=== PATIENT | male | born 1975 | race Asian ===

== ENCOUNTER 2017-06-19 22:08 | Inpatient (IN) | payer OTHER ==
[~2017-06-19] VITALS: Ht 167.6 cm; Wt 78.9 kg
[2017-06-20] MEDS ORDERED: CLOPIDOGREL 75MG TABLET PO SCH (03:00)
[2017-06-20] MEDS ORDERED: ENOXAPARIN 80MG/0.8ML SYR SUBCUT SCH ×2 (03:00→18:00)
[2017-06-20] MEDS ORDERED: ASPIRIN 325MG EC TABLET PO SCH (03:00)
[2017-06-20 03:25] LABS: BASOPHILS % 0.7 % (0.0-2.0); EOSINOPHILS % 2.1 % (0.0-5.0); HEMATOCRIT. 41.8 % (42.0-52.0); HEMOGLOBIN. 13.8 g/dL (14.0-18.0); MEAN CORPUSCULAR HEMOGLOBIN 27.9 pg (28.0-32.0); MEAN CORPUSCULAR VOLUME 84.4 fL (80.0-94.0); MEAN PLATELET VOLUME 8.4 fl (7.4-10.4); MONOCYTES % 8.1 % (2.0-8.0); NEUTROPHILS % 64.1 % (40.0-76.0); PLATELET 374 x1000/uL (130-400); RED BLOOD CELL COUNT 4.95 mill/uL (4.7-6.1); RED CELL DISTRIBUTION WIDTH 13.9 % (11.6-14.6)
[2017-06-20 03:30] LABS: PARTIAL THROMBOPLASTIN TIME 29.7 sec (23.4-31.0)
[2017-06-20 03:32] LABS: CARBON DIOXIDE 28 mEq/L (21-32); CHLORIDE 103 mEq/L (98-107)
[2017-06-20 07:39] LABS: CREATINE KINASE MB FRACTION 5.9 ng/mL (0.5-3.6)
[2017-06-20 07:42] LABS: TROPONIN I 0.95 ng/mL (0.00-0.04)
[2017-06-20 07:50] VITALS: BP 145/86
[2017-06-20 08:00] VITALS: BP 145/86
[2017-06-20] MEDS ORDERED: DIPHENHYDRAMINE 50MG/ML VIAL IV PRN (10:30)
[2017-06-20] MEDS ORDERED: ONDANSETRON HCL 4MG/2ML VIAL IV PRN (10:30)
[2017-06-20] MEDS ORDERED: MAGNESIUM/ALUMINUM HYDROXIDE/SIMETHICONE 30ML UDC PO PRN (10:30)
[2017-06-20] MEDS ORDERED: ACETAMINOPHEN 325MG TABLET PO PRN (10:30)
[2017-06-20] MEDS ORDERED: CLONIDINE 0.1MG TABLET PO PRN (10:30)
[2017-06-20] MEDS ORDERED: FURO40TA5 PO (10:42)
[2017-06-20] MEDS ORDERED: HYDR-4134 PO (10:42)
[2017-06-20] MEDS ORDERED: [UNRECOGNIZED DRUG - OTHER] (10:42)
[2017-06-20] MEDS ORDERED: AMLO10TA4 PO (10:42)
[2017-06-20] MEDS ORDERED: LISI2.5T47 PO (10:42)
[2017-06-20] MEDS ORDERED: LOSARTAN POTASSIUM 50 MG TABLET PO SCH (11:45)
[2017-06-20 12:00] VITALS: BP 125/70
[2017-06-20] MEDS ORDERED: SODIUM CHLORIDE 0.9% INJ 3ML FLUSH IVF SCH (14:00)
[2017-06-20 16:00] VITALS: BP 130/67
[2017-06-20] MEDS ORDERED: ATORVASTATIN CALCIUM 20MG TABLET PO SCH (21:00)
[2017-06-20] MEDS ORDERED: METOPROLOL TARTRATE 25MG TABLET PO SCH (21:00)
[2017-06-21] MEDS ORDERED: ASPIRIN 325MG EC TABLET PO SCH (09:00)
== END 2017-06-20 18:30 | disposition short-term general hospital (02) | DRG 282 ==
LOC: ER 22:37 → 6WST 06-20 03:43 → ENRESERV 06-20 07:12
PROVIDERS: ADMIT Internal Medicine; ATTEND Internal Medicine
DX: I21.4 Non-ST elevation (NSTEMI) myocardial infarction (principal); I11.0 Hypertensive heart disease with heart failure; I50.9 Heart failure, unspecified; Z79.899 Other long term (current) drug therapy; Z82.49 Family history of ischemic heart disease and other diseases of the circulatory system
CPT/HCPCS: 36415; 80053; 82550; 82553; 84484; 85025; 85610; 85730; 93005; 93306; 96372; 99291; J1650